=== PATIENT | female | born 1975 | race Caucasian/White ===

== ENCOUNTER 2018-01-06 16:19 | Outpatient (REF) | payer MEDICAID, SELFPAY ==
--- NOTE | 2018-01-06 16:15 | PAPFT_PTH ---
PATIENT: Shelby Bautista LOC: [facility] U#:[id number] AGE/SX: 42/F ROOM: RE01/06/[address]: KEVIN Balderrama : 1975 BED: DIS: 01/06/2018 SPEC #: [id number] RECD: 01/06/18 17:36 STATUS: RANDALL REAiden #: [id number] ANDREA: 01/06/18 16:[address]: Maya Calderon DEPT: [facility] Cytology RECD BY: Yakelin Castro Tissues: 1 - CX/ENDOCX FOR PAP SMEARS Procedures: PAP THIN PREP/[facility] Screening HPV DNA PROBE Comments: [id number]
[2018-01-08 15:11] LABS: Chlamydia Result Negative; GC Result Negative; Specimen Description CERVIX
== END 2018-01-06 16:39 ==
LOC: LBN 16:19
PROVIDERS: Visit Provider Nurse Practitioner Family
DX: Z11.3 Encounter for screening for infections with a predominantly sexual mode of transmission (principal); Z12.4 Encounter for screening for malignant neoplasm of cervix; Z11.51 Encounter for screening for human papillomavirus (HPV)
CPT/HCPCS: 87491; 87591; 88142; 87624

== ENCOUNTER 2024-11-20 18:42 | Outpatient (CLI) | payer MEDICAID, SELFPAY ==
--- NOTE | 2024-11-20 19:20 | DI.RAD_ITS ---
Exam(s) XR SHOULDER LT COMPLETE 2+V EXAM: XR SHOULDER LT COMPLETE 2+V CLINICAL HISTORY: Pain in left shoulder ICD-10: M25.512. TECHNIQUE: 2D digital imaging was performed. COMPARISON: No exams were available for comparison FINDINGS: Five views No evidence of fracture nor dislocation or abnormal soft tissue calcifications. The subacromial space is not diminished. There is a small osteophytic ridge on the undersurface of the a chromium which may be causing some impingement upon the rotator cuff mechanism. There are no prominent degenerative changes in the AC joint nor significant degenerative changes in the glenohumeral joint. Bone density is normal. No osseous lesions. IMPRESSION: No acute osseous findings in the left shoulder. DATA REPOSITORY: RADIATION DOSE DELIVERED:
--- NOTE | 2024-11-20 21:00 | DI.VRAD_ITS ---
PROCEDURE INFORMATION: Exam: XR Left Shoulder Exam date and time: 11/20/2024 7:15 PM Age: 49 years old Clinical indication: Pain; Shoulder; Left TECHNIQUE: Imaging protocol: Radiologic exam of the left shoulder. Views: 2 or more views. COMPARISON: No relevant prior studies available. FINDINGS: Bones/joints: Mild Degenerative changes in the acromioclavicular joint and glenohumeral joint. There is no evidence of acute fracture.There is no evidence of malalignment or dislocation. Soft tissues: Normal. IMPRESSION: There is no evidence of acute fracture.There is no evidence of malalignment or dislocation. Dictated and Authenticated by: Albert Muse MD. Orderin Felicia Vang MD
== END 2024-11-20 19:02 ==
PROVIDERS: Visit Provider Physician Assistant Medical
DX: M25.512 Pain in left shoulder (principal)
CPT/HCPCS: 73030

== ENCOUNTER 2025-01-06 01:24 | Outpatient (CLI) | payer BC, SELFPAY ==
--- NOTE | 2025-01-06 | DI.MRI_ITS ---
Exam(s) MR UPPER JOINT LT WO EXAM: MR UPPER JOINT LT WO CLINICAL HISTORY: CHRONIC LEFT SHOULDER PAIN M25.512 CHRONIC PAIN G89.29 TECHNIQUE: Multiplanar multisequence MRI of the shoulder was performed. COMPARISON: CR,XR XR SHOULDER LT COMPLETE 2+V from 11/20/2024 FINDINGS: MARROW:There is no evidence of fracture, Hill-Sachs deformity, nor ominous osseous lesions. GLENOHUMERAL JOINT: No joint effusion nor obvious loose intra-articular bodies. No chondral defects. No osteophytes. No degenerative subarticular cysts. ROTATOR CUFF MECHANISM: AC JOINT/ACROMIUM: There is minimal degenerative change in the AC joint.. There is some hypertrophied undersurface soft tissue. There is os acromial noted without displacement nor significant intraosseous signal abnormality. Supraspinatus: Supraspinatus tendon exhibits some tendinitis-tendinosis signal but without significant thickening and there is no evidence of full-thickness tear. There is, however, of small amount of fluid in the subacromial bursa space. There is no muscle atrophy. Infraspinatus: Intact. No evidence of tear nor muscle atrophy. Teres Minor: Intact. No evidence of tear nor muscle atrophy. Subscapularis/anterior cuff: Intact. No abnormal signal at the level of the multipennate insertional fibers. No significant tear nor atrophy. BICEPS TENDON: Exhibits normal position within the intertubercular groove. No evidence of tear. No tenosynovitis. LABRUM: No labral tear identified. No evidence of paralabral cyst. LABROLIGAMENTOUS/CAPSULAR COMPLEX: There is no evidence of avulsion of the anterior-inferior labrum, capsule, inferior glenohumeral ligament complex nor disruption of the scapular periosteum to suggest the presence of a Bankart lesion. QUADRILATERAL SPACE: No evidence of mass in the region of the axillary nerve and dorsal circumflex humeral vessels. Visualized triceps muscle at this level appears unremarkable. IMPRESSION: 1. There is some tendinitis signal in the supraspinatus but no evidence of full- thickness tear. There is mild edema in the subacromial space.. Other 3 muscular components of the rotator cuff mechanism appear unremarkable. 2. No evidence of biceps tendon tear nor labral tears. 3. Os trigonum is noted. DATA REPOSITORY:
== END 2025-01-06 01:44 ==
LOC: DI 01:24
PROVIDERS: Visit Provider Physician Assistant Medical
DX: M25.512 Pain in left shoulder (principal); G89.29 Other chronic pain
CPT/HCPCS: 73221